=== PATIENT | female | born 1990 | race American Indian/Alaskan Native ===

== ENCOUNTER 2017-02-18 10:23 | Inpatient (IN) | payer OTHER ==
[2017-02-17 10:45] VITALS: BMI 31.2
[2017-02-18 11:29] LABS: HEMATOCRIT 37.7 % (34.0-47.0); MEAN CORPUSCULAR HEMOGLOBIN 30.8 pg (27.0-31.0); MEAN CORPUSCULAR HGB CONC 33.2 g/dL (33.0-37.0); RED CELL DISTRIBUTION WIDTH 12.6 % (11.5-14.5); WHITE BLOOD COUNT 4.8 K/uL (4.8-10.8)
[2017-02-18] MEDS ORDERED: Succinylcholine 200 mg/10 ml Inj IV ONE (11:44)
[2017-02-18] MEDS ORDERED: Propofol 10 mg/ml Inj (20 ML) ONE (11:44)
[2017-02-18] MEDS ORDERED: Midazolam 2 MG/2 ML VIAL ONE (11:44)
[2017-02-18] MEDS ORDERED: Bupivacaine 0.5% Inj(30mL) ONE (11:45)
--- NOTE | 2017-02-18 11:50 | CP.SDSHP ---
Same Day Surgery H & P - History Proposed Procedure: Laparoscopic bilateral cystectomy for ovarian cysts, possible oophorectomy, possible laparotomy Pre-Op Diagnosis: Bilateral Ovarian cystectomy - Allergies Allergies: Allergies No Known Allergies Allergy (Verified 02/17/17 10:44) - Physical Exam Vital Signs: Vital Signs 02/18/17 02/18/17 11:04 11:08 Temperature 98.4 F Pulse Rate 75 75 Respiratory 18 Rate Blood Pressure 115/70 O2 Sat by Pulse 99 Oximetry Mental Status: Alert & Oriented x3 Neuro: WNL Heart: WNL Lungs: WNL GI: WNL - {Optional Preform as Required} Breast: WNL Abdomen: WNL TAILING HAND: WNL - Impression Pt. Evaluated Today:Candidate for Anesthesia & Procedure: Yes - Date & Time Date: 02/18/17 Time: 11:49 Short Stay Discharge - Short Stay Discharge Admitting Diagnosis/Reason for Visit: N83.209 R10.2 D25.9 Follow-up: F/U in office in 2 wks
[2017-02-18] MEDS ORDERED: Lactated Ringer's 1,000 ML IV ONE ×2 (11:52→13:00)
[2017-02-18] MEDS ORDERED: Rocuronium 10 mg/ml (5 ml) ONE ×2 (11:59→12:19)
[2017-02-18] MEDS ORDERED: Esmolol 100 mg/10ml Inj IV ONE (12:09)
[2017-02-18] MEDS ORDERED: Desflurane Inhalation Anesthetic Liq (240 ml) ONE (12:21)
[2017-02-18] MEDS ORDERED: ePHEDrine 50 mg/ml Inj ONE (12:44)
[2017-02-18] MEDS ORDERED: Dexamethasone 4 mg/1 ml ONE (13:02)
[2017-02-18] MEDS ORDERED: Neostigmine Methylsulfate 2 MG/2 ML ML IV ONE (13:34)
[2017-02-18] MEDS ORDERED: Neostigmine Methylsulfate 3mg/3ml Syringe IV ONE (13:34)
[2017-02-18] MEDS: HYDROmorphone 0.5 mg/0.5 ml ISec IVP PRN ×2 (14:35→15:10)
[2017-02-18] MEDS: Lactated Ringer's 1,000 ML IV SCH (20:29)
[2017-02-19] MEDS: Lactated Ringer's 1,000 ML IV SCH ×2 (04:49→12:07)
[2017-02-19] MEDS ORDERED: Oxycodone/Acetaminophen 5/325 mg Tab PO PRN (11:03)
[2017-02-19] MEDS ORDERED: Simethicone 80 mg Chewtab PO PRN (11:04)
--- NOTE | 2017-02-19 11:49 | CP.PCM.PN ---
Subjective - Date & Time of Evaluation Date of Evaluation: 02/19/17 Time of Evaluation: 11:46 - Subjective Subjective: Patient is a 26 yo s/p left partial oophorectomy, cystectomy and right cystectomy via laparotomy POD #1. Denies CP, no fever, no SOB, no nausea/ vomiting, abdominal pain tolerable with meds, no vaginal bleeding, no flatus, ambulating minimal, +porter draining urine appropriately Objective - Vital Signs/Intake and Output Vital Signs (last 24 hours): Temp Pulse Resp BP Pulse Ox 97.2 F L 76 15 94/52 L 99 02/19/17 08:00 02/19/17 08:00 02/19/17 08:00 02/19/17 08:00 02/19/17 08:00 Intake and Output: 02/19/17 02/19/17 06:59 18:59 Intake Total 240 Balance 240 - Medications Medications: Current Medications Docusate Sodium (Colace) 200 mg PO DAILY [facility] Lactated Ringer's (Lactated Ringer's) 1,000 mls @ 125 mls/hr IV .Q8H [facility] Last Admin: 02/19/17 04:49 Dose: 125 mls/hr Ibuprofen (Motrin Tab) 600 mg PO Q6 PRN PRN Reason: Pain, Mild (1-3) Ketorolac Tromethamine (Toradol) 15 mg IVP Q6 [facility] Last Admin: 02/19/17 10:17 Dose: 15 mg Ondansetron HCl (Zofran Inj) 4 mg IVP Q4 PRN PRN Reason: Nausea/Vomiting Oxycodone/Acetaminophen (Percocet 5/325 Mg Tab) 1 tab PO Q4 PRN PRN Reason: Pain, moderate (4-7) Stop: 02/22/17 11:04 Simethicone (Mylicon Chew Tab) 80 mg PO TID PRN PRN Reason: Flatulence - Labs Labs: 02/18/17 11:20 - Head Exam Head Exam: ATRAUMATIC - Respiratory Exam Respiratory Exam: NORMAL BREATHING PATTERN - Cardiovascular Exam Cardiovascular Exam: REGULAR RHYTHM - GI/Abdominal Exam GI & Abdominal Exam: Normal Bowel Sounds Additional comments: Incision clean/dry/intact - Extremities Exam Extremities Exam: Normal Inspection Assessment and Plan - Assessment and Plan (Free Text) Plan: A/P POD #1 s/p laparotomy for endometriosis 1. Continue reg diet 2. Discontinue GRAIN BUYER and convert to Percocet/Motrin prn pain 3. Colace/Dulcolax prn constipation 4. Remove porter, encourage ambulation 5. Will evaluate to see if patient can be discharged later today
--- NOTE | 2017-02-19 20:55 | OP ---
PROCEDURE DATE: 02/18/2017 SURGEON: Dr. Hernandez. REWRITER: Dr. Zuluaga. PREOPERATIVE DIAGNOSIS: Bilateral endometriomas. PROCEDURE: Diagnostic laparoscopy, laparotomy with left partial oophorectomy, left cystectomy, right ovarian cystectomy. POSTOPERATIVE DIAGNOSES: Bilateral endometriomas and endometriosis. ESTIMATED BLOOD LOSS: 70 mL. URINE OUTPUT: 50 mL. ANESTHESIA: General by Dr. Ramsay. TOTAL FLUID INPUT: 1100 mL of lactated ringers. COMPLICATIONS: None. CONDITION: Stable. PATHOLOGY SPECIMEN: Bilateral cyst fluid and left partial oophorectomy and cyst. INDICATIONS: This is a 26-year-old nulliparous patient with a history of diagnosed bilateral endomet riosis on multiple ultrasounds. The last ultrasound indicated that the largest endometrioma looked t o be on the right side measuring 8-9 cm and that there were left endometriomas as well. It was discu ssed with the patient. The patient to be consented for laparoscopic procedure to remove the ovarian cyst, possible laparotomy, possible partial oophorectomy or total oophorectomy if necessary. The pat ient verbalized understanding of risks including risk of bleeding, infection, damage to surrounding o rgans. The patient signed informed consent. PROCEDURE: The patient was taken to the OR, IV fluids were running successfully. The patient's legs were placed in the Arjun type stirrups and patient was prepped and draped in normal sterile fashion for a laparoscopic procedure. The Wilkerson catheter was inserted into the bladder draining clear urine. A weighted speculum was placed in the posterior fornix and a Viola was used to aid with visualizat ion of the anterior lip of the cervix, which was grasped with a single-tooth tenaculum. A uterine ma nipulator was introduced. A vertical incision at the umbilicus was made and the Veress needle was in serted at a 45 degree angle and the water test ensured the proper placement of the Veress needle in t he peritoneum. The pneumoperitoneum was established with CO2 gas to a pressure of 15 mHz. A 10 mm t rocar was inserted into the abdomen. At this point, the intraabdominal placement was confirmed with the laparoscope and we surveyed the intraabdominal cavity which showed extensive disease caused by en dometriosis which was covering the omentum, the cul-de-sac and the ovarian cysts that had been report ed to be in the right side was actually a very large cyst that was fused together from both sides, le ft and right ovary, and was difficult to manipulate due to adhesions. It was at this point decided t o convert the patient to a laparotomy. We removed all instruments from the vagina and we then took t he patient out of the Arjun type stirrups and converted to laparotomy. Ancef was given at this point as appropriate prophylaxis coverage. We made a Pfannenstiel incision with a scalpel and carried it to the underlying layer of fascia with the Bovie. The fascia was at the midline with the B ovie. The incision was extended laterally with the Jorgensen scissors. Chris clamps were used to tent u p the inferior aspect of this incision, which we dissected off underlying pyramidalis muscles with th e Bovie. In a similar fashion, we tented up the superior aspect of this incision, which we dissected off underlying rectus abdominis muscles with the Bovie. The muscles were bluntly at the m idline. The peritoneum was identified, grabbed with pickups and entered sharply with the Metzenbaum scissors. The incision extended superiorly and inferiorly with good visualization of all underlying organs. At this point, we were able to confirm extensive disease again covering the entire omentum, a large 10-11 mm cyst. We dissected by making a small incision at the top and we were able to drain fluid and send the specimen off to pathology. It was endometrioma inconsistency. We dissected the c yst down as much as possible and at this point, it was noted again that the bilateral adnexa were sim ply fused with adhesions and the cysts were connected. We were able to bluntly dissect, with the Met zenbaum, apart the right and left adnexa. There was another simple cyst on the left side, which was about 3-4 cm, which we also drained. On the right side, there was an endometrioma that was probably about 5 cm, which we drained and dissected as best as possible. At this point, it was very difficult to completely resect out the left endometrioma cyst wall, so as best as possible, a partial oophorec emmy was done and then the remaining adnexa was reapproximated with a 2-0 chromic in multiple layers with good hemostasis noted. The same was done on the right side. We removed the cyst contents, trie d to remove the cyst wall as best as possible and then reapproximated the edges of the adnexa with a 2-0 chromic. We used exposure by placing a [place] and wet laps in order to protect the bowel before starting this procedure. There was minimal bleeding overall, mostly from the site of the adhesions, irrigated multiple times the pelvic cavity and placed Interceed over both adnexa. At this point, we felt we had evacuated the disease as best as possible. We decided to terminate the procedure, retra cting instruments out of the abdominal cavity, all laps. We closed the peritoneum with 2-0 chromic a nd reapproximated the muscle with the same stitch. The fascia was closed with an 0 Vicryl stitch and the subcutaneous fat was reapproximated with plain gut suture and the skin was closed with 4-0 Monoc ryl. Sponge, lap and needle counts were correct x 3. The patient was taken to recovery room in stabl e condition and was admitted to the hospital for overnight stay. Dr. Zuluaga assisted in all aspec ts of the surgery including retraction, suturing, cutting of sutures and exposure. There were no oth er complications. Cait Hernandez MD cc: [id number] TT: 02/19/2017 20:54:57 jose
--- NOTE | 2017-02-20 08:52 | CP.PCM.PN ---
Subjective - Date & Time of Evaluation Date of Evaluation: 02/20/17 Time of Evaluation: 08:48 - Subjective Subjective: Patient is s/p partial oophorectomy, left and right cystectomy via laparoptomy, POD #2. Patient denies fever, no CP, no N/V, tolerating PO diet, ambulating/ voiding well, +flatus, no vaginal bleeding, abdominal pain tolerable with meds Objective - Vital Signs/Intake and Output Vital Signs (last 24 hours): Temp Pulse Resp BP Pulse Ox 98 F 80 20 111/59 L 98 02/20/17 05:00 02/20/17 05:00 02/20/17 05:00 02/20/17 05:00 02/20/17 05:00 Intake and Output: 02/20/17 02/20/17 06:59 18:59 Intake Total 400 Output Total 1200 Balance -800 - Medications Medications: Current Medications Docusate Sodium (Colace) 200 mg PO DAILY [facility] Last Admin: 02/19/17 13:33 Dose: 200 mg Ibuprofen (Motrin Tab) 600 mg PO Q6 PRN PRN Reason: Pain, Mild (1-3) Last Admin: 02/20/17 02:17 Dose: 600 mg Ondansetron HCl (Zofran Inj) 4 mg IVP Q4 PRN PRN Reason: Nausea/Vomiting Oxycodone/Acetaminophen (Percocet 5/325 Mg Tab) 1 tab PO Q4 PRN PRN Reason: Pain, moderate (4-7) Stop: 02/22/17 11:04 Simethicone (Mylicon Chew Tab) 80 mg PO TID PRN PRN Reason: Flatulence Last Admin: 02/19/17 13:34 Dose: 80 mg - Labs Labs: 02/18/17 11:20 - Head Exam Head Exam: NORMAL INSPECTION - Eye Exam Pupil Exam: NORMAL ACCOMODATION - Respiratory Exam Respiratory Exam: NORMAL BREATHING PATTERN - Cardiovascular Exam Cardiovascular Exam: REGULAR RHYTHM - GI/Abdominal Exam GI & Abdominal Exam: Normal Bowel Sounds Additional comments: soft, no rebound, no gaurding, incision clean/dry/intact - Extremities Exam Extremities Exam: Normal Inspection Assessment and Plan - Assessment and Plan (Free Text) Plan: A/P 1. Patient recovering well, tolerating diet, pain medication, ambulating well 2. Discharge patient home 3. DIscharge instructions reviewed, pt to follow up in 2 wks in the office
[2017-02-20 09:58] VITALS: BP 123/72; PULSE 90; RESP 16; TEMP 98.3; O2SAT 100
== END 2017-02-20 13:20 | disposition home or self-care (01) | DRG 743 ==
LOC: H.OPSURG 10:23 → H.PEDS 14:27
PROVIDERS: ADMIT Obstetrics & Gynecology; ATTEND Obstetrics & Gynecology
PROC: 0UB10ZZ Excision of Left Ovary, Open Approach (ICD-10-PCS; 2017-02-18)
PROC: 0UB20ZZ Excision of Bilateral Ovaries, Open Approach (ICD-10-PCS; principal; 2017-02-18 12:15)
DX: N80.1 Endometriosis of ovary (principal); N83.201 Unspecified ovarian cyst, right side; N83.202 Unspecified ovarian cyst, left side